=== PATIENT | female | born 1970 | race Caucasian/White ===

== ENCOUNTER 2020-08-20 08:14 | Emergency (ER) | payer OTHER ==
[~2020-08-20] VITALS: Ht 149.9 cm; Wt 664.5 kg
[~2020-08-20 08:14] MED LIST: FORTAMET1000 MG
[2020-08-20] MEDS ORDERED: NEURONTIN300 MG (08:26)
[2020-08-20] MEDS ORDERED: JENTADUETO 2.51 EACH (08:26)
== END 2020-08-20 10:17 | disposition home or self-care (01) ==
LOC: ER 08:14
DX: M79.7 Fibromyalgia (principal); M54.5 Low back pain

== ENCOUNTER 2022-03-16 18:55 | Emergency (ER) | payer OTHER ==
[~2022-03-16] VITALS: Ht 149.9 cm; Wt 63.5 kg
[~2022-03-16 18:55] MED LIST changes: +JENTADUETO 2.51 EACH; +NEURONTIN300 MG
== END 2022-03-16 22:23 | disposition home or self-care (01) ==
LOC: ER 18:55
DX: E11.65 Type 2 diabetes mellitus with hyperglycemia (principal); Z79.84 Long term (current) use of oral hypoglycemic drugs; Z20.822 Contact with and (suspected) exposure to COVID-19; Z88.8 Allergy status to other drugs, medicaments and biological substances